=== PATIENT | male | born 1955 | race Hispanic/Latino ===

== ENCOUNTER 2022-04-24 07:23 | Outpatient (CLI) | payer OTHER | END 2022-04-24 07:24 | disposition home or self-care (01) | LOC: CSHULT 07:23 | PROVIDERS: ATTEND Family Medicine | DX: R79.89 Other specified abnormal findings of blood chemistry (principal); D69.6 Thrombocytopenia, unspecified; K76.9 Liver disease, unspecified | CPT/HCPCS: 76700 ==